=== PATIENT | female | born 1965 | race Caucasian/White ===

== ENCOUNTER 2016-10-15 09:46 | Emergency (ER) | payer MEDICAID ==
[~2016-10-15] VITALS: Ht 175.3 cm; Wt 141.0 kg
[~2016-10-15 09:46] MED LIST: ADVAIR DISK1 INH; AMITRIPTYLIN150 MG PO; BUSPAR15 M1 PO; BUSPAR5 M1 PO; CLONAZEPAM1 M1 PO; CLONAZEPAM1 MG PO; CYMBALTA20 MG PO; DEXILANT30 MG PO; DEXILANT60 MG PO; FLEXERIL PO; GABAPENTIN100 MG PO; GABAPENTIN300 MG PO; NAPROSYN500 MG PO; PERCOCET 5/325M1 TAB PO; PROAIR HFA IN; QUETIAPINE FUM400 MG PO; REMERON30 MG PO; SEROQUEL25 MG PO; TIZANIDINE HCL6 MG PO; TOPAMAX25 MG PO
[2016-10-15] MEDS ORDERED: NAPROSYN250 MG PO (10:10)
[2016-10-15 12:12] LABS: HEMOGLOBIN 11.4 g/dl (12.0-16.0); IMMATURE GRANULOCYTES 0.5 % (0.0-1.0); MEAN CELL VOLUME 89.4 fL CALC (80.0-100.0); MEAN CORPUSCULAR HGB 27.5 pG CALC (26.0-32.0); MEAN CORPUSCULAR HGB CONC 30.8 g/L CALC (32.0-36.0); NEUT# 2.47 thou/uL (2.00-7.15); RED BLOOD COUNT 4.14 mill/uL (4.20-5.60); RED CELL DISTRI WIDTH 15.8 % (11.5-15.5)
[2016-10-15 12:25] LABS: ALBUMIN 3.8 g/dL (3.2-5.0); ALKALINE PHOSPHATASE 96 u/l (38-126); ANION GAP 13 (6-22 (CALC)); BILIRUBIN, TOTAL 0.4 mg/dL (0.0-1.4); BUN 12 mg/dL (7-17); BUN/CREATININE RATIO 11 (12-20 (CALC)); CALCIUM 8.8 mg/dL (8.4-10.2); CARBON DIOXIDE 25 mmol/l (22-30); CHLORIDE 107 mmol/l (95-108); GFR 59 ML/MIN (>=60 (CALC)); GFR FOR AFR.AMER. > 60 ML/MIN (>=60 (CALC)); GLUCOSE 77 mg/dL (65-105); POTASSIUM 4.2 mmol/l (3.5-5.1); SGOT/AST 29 u/l (14-36); SGPT/ALT 32 u/l (9-52); SODIUM 140 mmol/l (137-146); TOTAL PROTEIN 6.5 g/dL (6.3-8.2)
[2016-10-15 12:42] VITALS: BP 112/72
== END 2016-10-15 12:55 | disposition home or self-care (01) | DRG 93 ==
LOC: ED 09:46
PROVIDERS: Emergency Medicine
DX: R25.2 Cramp and spasm (principal); R60.0 Localized edema

== ENCOUNTER 2017-10-05 21:42 | Emergency (ER) | payer OTHER ==
[~2017-10-05] VITALS: Ht 175.3 cm; Wt 156.0 kg
[~2017-10-05 21:42] MED LIST changes: +NAPROSYN250 MG PO
[2017-10-05] MEDS ORDERED: TIZANIDINE HCL6 MG PO (22:06)
[2017-10-05] MEDS ORDERED: NORCO1 TA1 PO (22:06)
[2017-10-05] MEDS ORDERED: PREDNISONE10 MG PO (22:34)
[2017-10-05 22:50] VITALS: BP 149/52
== END 2017-10-05 22:50 | disposition home or self-care (01) | DRG 607 ==
LOC: ED 21:42
DX: L25.9 Unspecified contact dermatitis, unspecified cause (principal); Z98.84 Bariatric surgery status

== ENCOUNTER 2018-11-28 21:52 | Emergency (ER) | payer OTHER ==
[~2018-11-28] VITALS: Ht 175.3 cm; Wt 157.0 kg
[~2018-11-28 21:52] MED LIST changes: +NORCO1 TA1 PO; +PREDNISONE10 MG PO
[2018-11-28 22:03] VITALS: BP 135/95
[2018-11-28] MEDS ORDERED: TORADOL PO (23:30)
== END 2018-11-28 22:58 | disposition home or self-care (01) | DRG 605 ==
LOC: ED 21:52
DX: S80.02XA Contusion of left knee, initial encounter (principal); S20.212A Contusion of left front wall of thorax, initial encounter; W01.0XXA Fall on same level from slipping, tripping and stumbling without subsequent striking against object, initial encounter; Y92.009 Unspecified place in unspecified non-institutional (private) residence as the place of occurrence of the external cause

== ENCOUNTER 2018-12-21 17:11 | Emergency (ER) | payer OTHER ==
[~2018-12-21] VITALS: Ht 175.3 cm; Wt 158.6 kg
[~2018-12-21 17:11] MED LIST changes: +TORADOL PO
[2018-12-21] MEDS ORDERED: FLONASE AL50 MCG/ACT IN (17:33)
[2018-12-21] MEDS ORDERED: HYDROXYCHLOR200 MG PO (17:33)
[2018-12-21] MEDS ORDERED: CYMBALTA60 MG PO (17:33)
[2018-12-21] MEDS ORDERED: METHOTREXATE IJ (17:34)
[2018-12-21 18:45] VITALS: BP 139/75
[2018-12-21] MEDS ORDERED: TORADOL PO (18:45)
== END 2018-12-21 18:50 | disposition home or self-care (01) | DRG 563 ==
LOC: ED 17:11
DX: S29.011A Strain of muscle and tendon of front wall of thorax, initial encounter (principal); X58.XXXA Exposure to other specified factors, initial encounter